=== PATIENT | female | born 1965 | race Caucasian/White ===

== ENCOUNTER 2024-08-08 09:00 | Outpatient (CLI) | payer BC, OTHER, SELFPAY ==
[2024-08-08 13:54] LABS: Basophils # 0.1 K/mm3 (0-0.2); Basophils % 1.4 % (0.1-2.0); Eosinophils # 0.2 Kmm3 (0.0-0.4); Eosinophils % 2.6 % (0.1-12.0); Hematocrit 48.3 % (37.0-47.0); Hemoglobin 16.1 g/dL (12.2-16.2); Immature Granulocytes # 0.02 10^3uL; Immature Granulocytes % 0.3 %; Lymphocytes # 1.8 K/mm3 (0.7-4.5); Lymphocytes % 25.4 % (10-50); Mean Corpuscular HGB Conc 33.3 g/dL (31.8-35.4); Mean Corpuscular Hemoglobin 29.6 pg (27.0-31.2); Mean Corpuscular Volume 88.8 fl (81-99); Mean Platelet Volume 11.6 fl (7.4-10.4); Monocytes # 0.5 K/mm3 (0.1-1.0); Monocytes % 6.9 % (1.7-9.3); Neutrophils # 4.4 K/mm3 (1.8-7.8); Neutrophils % 63.4 % (37.0-80.0); Nucleated Red Blood Cells # 0 10^3/uL; Nucleated Red Blood Cells % 0 %; Platelet Count 239 K/mm3 (142-424); Red Blood Count 5.44 M/mm3 (4.20-5.40); Red Cell Distribution Width 14.4 % (11.5-17.5); Red Cell Distribution Width-SD 46.5 fL
[2024-08-08 14:52] LABS: Alanine Aminotransferase 13 U/L (12-78); Albumin Level 4.8 g/dl (3.5-5.0); Alkaline Phosphatase 70 U/L (38-126); Anion Gap 10.3 mEq/L (5-15); Aspartate Amino Transferase 24 U/L (14-36); Bilirubin,Total 0.8 mg/dl (0.2-1.3); Blood Urea Nitrogen 13 mg/dl (7-17); Calcium 9.6 mg/dl (8.4-10.2); Carbon Dioxide 25 mmol/L (22.0-30.0); Chloride 109 mmol/L (98-107); Chol/HDL Ratio 3.9 (1-3.5); Cholesterol 228 mg/dl (140-200); Estimated Glomerular Filt Rate 87 ml/min (>60); GFR (African American) 105 ML/MIN (>60); Globulin 2.4 g/dL (1.3-3.2); Glucose 69 mg/dl (74-100); HDL Cholesterol 59 mg/dl (40-60); Potassium 5.3 mmoL/L (3.5-5.1); Sodium 139 mmol/L (136-145); Total Protein,Serum 7.2 g/dl (6.3-8.2); Triglycerides 100 mg/dl (30-150); VLDL Cholesterol 20 mg/dL (0-40)
[2024-08-08 15:02] LABS: Direct LDL Cholesterol 148.06 mg/dL (100-129)
[2024-08-08 19:47] LABS: HIV Combo NEGATIVE (Negative)
[2024-08-08 20:03] LABS: Hepatitis C Ab Qual. W/ RFX NEGATIVE (Negative)
[2024-08-08 21:45] LABS: Hemoglobin A1C 5.3 % (4.0-6.0)
== END 2024-08-08 23:59 | disposition home or self-care (01) ==
LOC: LAB.DROPOF 08-09 12:22
PROVIDERS: PCP Internal Medicine; Visit Provider Internal Medicine
DX: Z13.1 Encounter for screening for diabetes mellitus (principal); Z00.00 Encounter for general adult medical examination without abnormal findings; Z13.220 Encounter for screening for lipoid disorders; Z11.59 Encounter for screening for other viral diseases; Z11.4 Encounter for screening for human immunodeficiency virus [HIV]
CPT/HCPCS: 80053; 80061; 83036; 85025; 86803; 87389

== ENCOUNTER 2024-08-12 06:57 | Outpatient (CLI) | payer BC, OTHER, SELFPAY ==
--- NOTE | 2024-08-12 07:00 | CT_ITS ---
FINAL REPORT TECHNIQUE: Thin section axial images were obtained from the lung apices to the upper abdomen by computed tomography. Reformatted images were obtained and reviewed. This study was performed with techniques to keep radiation doses al low as reasonably achievable (ALARA). Individualized dose reduction techniques using automated exposure control or adjustment of mA and/or kV according to the patient's size were employed. CLINICAL HISTORY: .current smoker 1ppd x20 years COMPARISON: None FINDINGS: CHEST CT LOW DOSE 59-year-old female, current smoker, [id number]-dbcl history CTDI vol (mGy): 2.90 DLP (mGy-cm): 107.59 There is no axillary adenopathy. There is no mediastinal or hilar mass or adenopathy. The heart is normal in size. There is no pericardial or pleural effusion. Lung window images demonstrate no suspicious infiltrate or nodule. Limited images of the upper abdomen demonstrate a 1.5 cm low-attenuation density in the left lobe of the liver, only seen on the single view. IMPRESSION: Lung-RADS category 1 S, the S designation for the low-attenuation density in the left lobe of the liver. Recommend 12 month follow up low dose chest CT. Ultrasound may be helpful to further evaluate the low-attenuation density in the liver. Reviewed, Interpreted and Dictated by Isaac Pulido MD Transcribed by Sade Rubio Authenticated and . [facility]
== END 2024-08-12 23:59 | disposition home or self-care (01) ==
LOC: RAD 06:59
PROVIDERS: PCP Internal Medicine; Visit Provider Internal Medicine
DX: F17.209 Nicotine dependence, unspecified, with unspecified nicotine-induced disorders (principal)
CPT/HCPCS: 71271

== ENCOUNTER 2024-09-12 07:42 | Outpatient (CLI) | payer BC, OTHER, SELFPAY ==
--- NOTE | 2024-09-12 08:00 | US_ITS ---
FINAL REPORT CLINICAL HISTORY: Possible liver mass noted on CT COMPARISON: CT 08/12/2024 FINDINGS: Sonographic images of the right upper quadrant were obtained. The pancreas is partially obscured. There are 2 hypoechoic foci in the liver. There is a 2.5 cm focus in the lateral segment of the left lobe of the liver, as well as a 4.6 x 2.9 cm medial right hepatic lobe cyst, both of which appear consistent with simple cysts. The medial right hepatic lobe cyst correlates with the CT finding, which is only partially visualized on the LDCT examination. The gallbladder has been surgically resected. There is no evidence of biliary ductal dilatation.The common duct measures 7 mm. Limited images of the right kidney are unremarkable. IMPRESSION: 2 hepatic cysts are present, the larger in the right hepatic lobe correlates with the lesion seen on the prior LDCT of 08/12/2024. Prior cholecystectomy without evidence of biliary ductal dilatation. Reviewed, Interpreted and Dictated by Isaac Pulido MD Transcribed by Sade Rubio Authenticated and [facility]
== END 2024-09-12 23:59 | disposition home or self-care (01) ==
LOC: RAD 07:42
PROVIDERS: PCP Internal Medicine; Visit Provider Internal Medicine
DX: K76.89 Other specified diseases of liver (principal); Z90.49 Acquired absence of other specified parts of digestive tract
CPT/HCPCS: 76705

== ENCOUNTER 2024-11-04 08:00 | Outpatient (CLI) | payer BC, OTHER, SELFPAY ==
--- NOTE | 2024-11-04 08:30 | MM_ITS ---
PROCEDURE INFORMATION: Exam: MG Bilateral Screening 3D Mammography Exam date and time: 11/04/2024 8:21 AM Age: 59 years old Clinical indication: Screening mammogram TECHNIQUE: Imaging protocol: Bilateral Screening tomosynthesis and 2D mammography including computer-aided detection (CAD) when performed. COMPARISON: 1. MG MA Mammo Digital Screen Bilat 04/07/2023 12:50 PM 2. MG MA Mammo Digital Screen Bilat 07/29/2021 12:28 PM 3. US - MA US Breast Limited Left 04/11/2023 7:43 AM FINDINGS: MAMMOGRAPHY: Breast composition: There are scattered areas of fibroglandular density. Mass: Stable benign-appearing subcentimeter nodules are present in the left breast. No new or morphologically suspicious nodule has developed to suggest malignancy. Architectural distortion: No new or suspicious architectural distortion. Calcifications: No new or suspicious calcifications are present Asymmetric density: No new or suspicious asymmetric density is present Skin thickening: None. Axillary adenopathy: None. IMPRESSION: No mammographic evidence of malignancy. Recommend annual screening mammography unless otherwise clinically indicated. ASSESSMENT: BI-RADS category 2: Benign.
== END 2024-11-04 23:59 | disposition home or self-care (01) ==
LOC: RAD 08:01
PROVIDERS: PCP Internal Medicine; Visit Provider Internal Medicine
DX: Z12.31 Encounter for screening mammogram for malignant neoplasm of breast (principal); R92.321 Mammographic fibroglandular density, right breast; N63.20 Unspecified lump in the left breast, unspecified quadrant
CPT/HCPCS: 77063; 77067

== ENCOUNTER 2025-01-21 08:52 | Outpatient (CLI) | payer BC, OTHER, SELFPAY ==
--- NOTE | 2025-01-21 09:15 | XR_ITS ---
FINAL REPORT TECHNIQUE: Bone densitometry calculations of the lumbar spine and left hip were obtained. CLINICAL HISTORY: osteopenia COMPARISON: None FINDINGS: Using L1-4, the bone mineral density of the spine is 0.814 g/cm2, corresponding to T-score of -2.1. Using the left hip, the bone mineral density of the femoral neck is 0.655 g/cm2, corresponding to a T-score of -1.7. Using the right hip, the bone mineral density of the femoral neck is 0.619 g/cm2, corresponding to a T-score of -2.1. NOTE: T-score: Standard deviation compared with peak bone mass of young adult mean. *Following the recommendations of the International Society of Bone densitometry, classification of hip BMD is based on the lower of two T-scores; total hip or femoral neck. IMPRESSION: Diminished bone mineral density of the lumbar spine and bilateral hips consistent with osteopenia. Reviewed, Interpreted and Dictated by Catie Faye MD Transcribed by Sade Rubio Authenticated and [facility]
--- NOTE | 2025-01-21 09:30 | MR_ITS ---
FINAL REPORT TECHNIQUE: Multiplanar MR without gadolinium enhancement CLINICAL HISTORY: rotator cuff injury LROM X FEW WEEKS COMPARISON: None FINDINGS: Marrow signal: There are cystic changes in the posterior humeral head related to the rotator cuff insertion. Glenohumeral joint: Unremarkable Acromioclavicular joint: Mild acromioclavicular arthropathy is present, with mild impingement. There is a trace amount of fluid present in the subacromial bursa. Rotator cuff apparatus: There is a high-grade partial tear at the junction of the distal supraspinatus and infraspinatus tendons, best seen on coronal image #13 of series 5 and sagittal image 22 of series 6. There is also a mild partial tear of the distal subscapularis tendon. Labrum: Unremarkable Biceps tendon: Unremarkable IMPRESSION: 1. High-grade partial tear at the junction of the distal supraspinatus and infraspinatus tendons as described, with a small partial tear of the subscapularis tendon. 2. Acromioclavicular arthropathy with mild impingement. Reviewed, Interpreted and Dictated by Catie Faye MD Transcribed by Sade Rubio Authenticated and [facility]
== END 2025-01-21 23:59 | disposition home or self-care (01) ==
LOC: RAD 08:53
PROVIDERS: PCP Internal Medicine; Visit Provider Internal Medicine
DX: M75.111 Incomplete rotator cuff tear or rupture of right shoulder, not specified as traumatic (principal); M19.011 Primary osteoarthritis, right shoulder; M25.811 Other specified joint disorders, right shoulder; M85.88 Other specified disorders of bone density and structure, other site; M85.851 Other specified disorders of bone density and structure, right thigh; M85.852 Other specified disorders of bone density and structure, left thigh; Z72.0 Tobacco use
CPT/HCPCS: 73221; 77080